=== PATIENT | male | born 1960 | race Caucasian/White ===

== ENCOUNTER 2017-05-17 17:05 | Emergency (ER) | payer BC, OTHER ==
[2017-05-17] MEDS: ACETAMINOPHEN 325 MG TAB PO (20:40)
[2017-05-17] MEDS: SOD CHLORIDE 0.9% 1,000 ML IV (20:40)
[2017-05-17] MEDS: ONDANSETRON 4 MG INJ IV (20:40)
[2017-05-17 21:08] LABS: WHITE BLOOD COUNT 10.1 10^3/ul (4.8-10.8)
[2017-05-17 21:08] LABS: ABNORMAL IP MESSAGE 1; HEMATOCRIT 40.2 % (42.0-52.0); HEMOGLOBIN 14.1 g/dl (14.0-18.0); MEAN CORPUSCULAR HEMOGLOBIN 29.6 pg (29.0-33.0); MEAN CORPUSCULAR HGB CONC 35.1 g/dl (32.0-37.0); MEAN CORPUSCULAR VOLUME 84.5 fl (82.0-101.0); MEAN PLATELET VOLUME 10.6 fl (7.4-10.4); PLATELET COUNT 180 10^3/UL (140-415); POSITIVE DIFF @See below; RED BLOOD COUNT 4.76 10^6/ul (4.70-6.10); RED CELL DISTRIBUTION WIDTH 12.3 % (11.5-14.5)
[2017-05-17 21:32] LABS: ANION GAP 12 (8-16); BLOOD UREA NITROGEN 13 mg/dl (7-20); CARBON DIOXIDE 23 mmol/L (21-31); CHLORIDE 99 mmol/L (97-110); CREATININE 1.19 mg/dl (0.61-1.24); GLUCOSE 125 mg/dl (70-220); POTASSIUM 3.4 mmol/L (3.5-5.1); SODIUM 131 mmol/L (135-144)
[2017-05-17 21:58] LABS: ADD MAN DIFF? YES
[2017-05-17 22:03] LABS: BAND NEUTROPHILS #M 1.3 10^3/ul (0.0-0.6); BAND NEUTROPHILS % (M) 13 % (0-4); LYMPHOCYTES # 1.4 10^3/ul (0.8-2.9); LYMPHOCYTES #M 1.4 10^3/ul (0.8-2.9); LYMPHOCYTES % (M) 14 % (15-51); MONOCYTE # 0.7 10^3/ul (0.3-0.9); MONOCYTE #M 0.7 10^3/ul (0.3-0.9); MONOCYTES % (M) 7 % (0-11); SEG NEUT #M 6.8 10^3/ul (1.7-7.5); SEGMENTED NEUTROPHILS (M) % 66 % (39-77)
== END 2017-05-17 22:15 | disposition home or self-care (01) ==
LOC: FTE 17:05
DX: J10.1 Influenza due to other identified influenza virus with other respiratory manifestations (principal)
CPT/HCPCS: 36415; 71010; 80048; 85025; 87400; 96374; 99284-25